=== PATIENT | male | born 1990 | race Asian ===

== ENCOUNTER 2024-09-15 12:38 | Day surgery (SDC) | payer OTHER ==
[2024-09-15 12:58] VITALS: RESP 16; BMI 26.0
[2024-09-15 15:12] VITALS: TEMP 97.5
[2024-09-15 15:21] VITALS: BP 99/42; PULSE 72
== END 2024-09-15 15:40 | disposition home or self-care (01) ==
LOC: FASU-ENDO 12:38
PROVIDERS: ATTEND Internal Medicine Gastroenterology
PROC: 0DJD8ZZ Inspection of Lower Intestinal Tract, Via Natural or Artificial Opening Endoscopic (ICD-10-PCS; principal; 2024-09-15 14:37)
DX: Z12.11 Encounter for screening for malignant neoplasm of colon (principal); K64.1 Second degree hemorrhoids; K64.8 Other hemorrhoids; R93.3 Abnormal findings on diagnostic imaging of other parts of digestive tract